=== PATIENT | male | born 1980 | race Caucasian/White ===

== ENCOUNTER 2016-11-02 16:20 | Emergency (ER) | payer SELFPAY ==
[2016-11-02] MEDS ORDERED: IBUPROFEN 800 MG TABLET PO ONE (17:30)
--- NOTE | 2016-11-02 17:31 | ER Document Report ---
HPI - HPI Patient complains to provider of: Left hip injury Onset: Yesterday Onset/Duration: Sudden Quality of pain: Achy Pain Level: 2 Context: States that he was wrestling with his son and fell landing on his left hip. Patient complains of left hip pain with bruising. Patient states pain increases whenever he moves his left extremity posteriorly Associated Symptoms: Other - Hip pain Exacerbated by: Movement Relieved by: Denies Similar symptoms previously: No Recently seen / treated by doctor: No - ROS ROS below otherwise negative: Yes Systems Reviewed and Negative: Yes All other systems reviewed and negative - NEURO Neurology: DENIES: Weakness - CARDIOVASCULAR Cardiovascular: DENIES: Chest pain - MUSCULOSKELETAL Musculoskeletal: REPORTS: Extremity pain. DENIES: Back Pain - DERM Skin Color: Ecchymosis <LIU DILLARD - Last Filed: 11/02/16 18:25> Past Medical History - General Information source: Patient - Social History Smoking Status: Current Every Day Smoker Chew tobacco use (# tins/day): No Frequency of alcohol use: None Drug Abuse: None Occupation: none Lives with: Family Family History: Reviewed & Not Pertinent Patient has suicidal ideation: No Patient has homicidal ideation: No - Medical History Medical History: Negative Renal/ Medical History: Denies: Hx Peritoneal Dialysis Surgical Hx: Negative <LIU DILLARD - Last Filed: 11/02/16 18:25> Vertical Provider Document - CONSTITUTIONAL Agree With Documented VS: Yes Exam Limitations: No Limitations General Appearance: WD/WN, No Apparent Distress - INFECTION CONTROL TRAVEL OUTSIDE OF THE [place] IN LAST 30 DAYS: No - HEENT HEENT: Atraumatic, Normocephalic - NECK Neck: Normal Inspection - RESPIRATORY Respiratory: No Respiratory Distress O2 Sat by Pulse Oximetry: 99 - BACK Back: Normal Inspection Notes: no midline tenderness, step-off or deformity - MUSCULOSKELETAL/EXTREMETIES Musculoskeletal/Extremeties: MAEW, FROM, Tender - Lateral hip tenderness over greater trochanter, faint area of ecchymosis, no dislocation, tenderness increases with extension of left hip, No Edema, Eccymosis - NEURO Level of Consciousness: Awake, Alert, Appropriate Motor/Sensory: No Motor Deficit - DERM Integumentary: Warm, Dry <LIU DILLARD - Last Filed: 11/02/16 18:25> Course - Re-evaluation Re-evalutation: 11/02/16 18:19 Reviewed the results of patient's x-ray report with patient. Offered patient crutches, patient declined. - Vital Signs Vital signs: Temp Pulse Resp BP Pulse Ox 98.1 F 75 18 105/66 99 11/02/16 16:39 11/02/16 16:39 11/02/16 16:39 11/02/16 16:39 11/02/16 16:39 - Diagnostic Test Radiology reviewed: Reports reviewed <LIU DILLARD - Last Filed: 11/02/16 18:25> - Vital Signs Vital signs: Temp Pulse Resp BP Pulse Ox 97.8 F 65 16 116/75 100 11/02/16 18:32 11/02/16 18:32 11/02/16 18:32 11/02/16 18:32 11/02/16 18:32 <JOHNATHAN PEREZ - Last Filed: 11/03/16 14:42> Discharge <LIU DILLARD - Last Filed: 11/02/16 18:25> <JOHNATHAN PEREZ - Last Filed: 11/03/16 14:42> - Discharge Clinical Impression: Contusion, hip Qualifiers: Encounter type: initial encounter Laterality: left Qualified Code(s): S70.02XA - Contusion of left hip, initial encounter Sprain of left hip Qualifiers: Encounter type: initial encounter Qualified Code(s): S73.102A - Unspecified sprain of left hip, initial encounter Condition: Stable Disposition: HOME, SELF-CARE Instructions: Contusion ([facility]), Sprain ([facility]) Additional Instructions: Return immediately for any new or worsening symptoms Followup with your primary care provider, call tomorrow to make a followup appointment Follow-up with orthopedic doctor for any continued pain or problems Prescriptions: Naproxen [Naprosyn 250 Nmg Tablet] 1 tab PO BID #14 tablet Referrals: [facility] ([facility] [Provider Group] - Follow up as needed
--- NOTE | 2016-11-02 18:15 | RADIOLOGY REPORT (SQ) ---
EXAM DESCRIPTION: HIP LEFT AP/LATERAL COMPLETED DATE/TIME: 11/02/2016 5:54 pm REASON FOR STUDY: fall, left hip pain COMPARISON: None. NUMBER OF VIEWS: Two views. TECHNIQUE: AP pelvis and additional frog-leg view of the left hip. LIMITATIONS: None. FINDINGS: MINERALIZATION: Normal. LEFT HIP: No fracture or dislocation. No worrisome bone lesions. RIGHT HIP: No fracture or dislocation. No worrisome bone lesions. PUBIS AND ISCHIUM: No fracture. PELVIS: No fracture. SACRUM: No fracture or dislocation. No worrisome bone lesions. LOWER LUMBAR SPINE: No fracture or dislocation. No worrisome bone lesions. No significant disc disea se. SOFT TISSUES: No findings. OTHER: No other significant finding. IMPRESSION: NO RADIOGRAPHIC EVIDENCE OF ACUTE INJURY. TECHNICAL DOCUMENTATION: JOB ID: [id number] [employer]- All Rights Reserved
[2016-11-02 18:35] VITALS: BP 116/75
== END 2016-11-02 18:36 | disposition home or self-care (01) ==
LOC: ER 16:20
DX: S70.02XA Contusion of left hip, initial encounter (principal); S73.102A Unspecified sprain of left hip, initial encounter; F17.200 Nicotine dependence, unspecified, uncomplicated; W18.30XA Fall on same level, unspecified, initial encounter; Y93.72 Activity, wrestling
CPT/HCPCS: 99283

== ENCOUNTER 2017-05-31 14:23 | Emergency (ER) | payer SELFPAY ==
--- NOTE | 2017-05-31 15:55 | ER Document Report ---
HPI - HPI Pain Level: 4 Notes: Patient is a 36-year-old male who presents to the ED complaining of left scapular pain with no known injury 2-3 days. Patient states that he feels a knot in his back by the shoulder blade that has been bothering him. Patient states that movements and stretches in that area to increase his pain. Patient is able to pinpoint the exact spot that hurts. Patient does not take any medicines daily. He denies any drug allergies. He denies any IV drug use, injections of the back, spine sepsis, cancer, diabetes. Patient states that he is otherwise healthy, but does have chronic low back pain. He has no other concerns or complaints. He has not noticed any muscle deficits to his upper extremities. Denies any headache, fever, head injury, neck pain, changes in vision/speech/mentation/hearing, URI, sore throat, chest pain, palpitations, syncope, cough, shortness of breath, wheeze, dyspnea, abdominal pain, nausea/ vomiting/diarrhea, urinary retention, dysuria, hematuria, loss of control of bowel or bladder, numbness/tingling, saddle anesthesia, muscle paralysis/ weakness, or rash. - ROS Notes: REVIEW OF SYSTEMS: CONSTITUTIONAL : Denies fever, chills, or sweats. Denies recent illness. EENT: Denies eye, ear, throat, or mouth pain or symptoms. Denies nasal or sinus congestion or discharge. Denies throat, tongue, or mouth swelling or difficulty swallowing. CARDIOVASCULAR: Denies chest pain. Denies palpitations or racing or irregular heart beat. Denies ankle edema. RESPIRATORY: Denies cough, cold, or chest congestion. Denies shortness of breath, difficulty breathing, or wheezing. GASTROINTESTINAL: Denies abdominal pain or distention. Denies nausea, vomiting , or diarrhea. Denies blood in vomitus, stools, or per rectum. Denies black, tarry stools. Denies constipation. GENITOURINARY: Denies difficulty urinating, painful urination, burning, frequency, blood in urine, or discharge. MUSCULOSKELETAL: see hpi SKIN: Denies rash, lesions or sores. NEUROLOGICAL: Denies confusion or altered mental status. Denies passing out or loss of consciousness. Denies dizziness or lightheadedness. Denies headache. Denies weakness or paralysis or loss of use of either side. Denies problems with gait or speech. Denies sensory loss, numbness, or tingling. Denies seizures. ALL OTHER SYSTEMS REVIEWED AND NEGATIVE. Dictation was performed using [employer] voice recognition software Past Medical History - Social History Smoking Status: Unknown if Ever Smoked Family History: Reviewed & Not Pertinent Renal/ Medical History: Denies: Hx Peritoneal Dialysis Vertical Provider Document - CONSTITUTIONAL Agree With Documented VS: Yes Notes: PHYSICAL EXAMINATION: GENERAL: Well-appearing, well-nourished and in no acute distress. LUNGS: Breath sounds clear to auscultation bilaterally and equal. No wheezes rales or rhonchi. HEART: Regular rate and rhythm without murmurs, rubs, gallops. ABDOMEN: Soft, nontender, nondistended abdomen. No guarding, no rebound. No masses appreciated. Normal bowel sounds present. No CVA tenderness bilaterally. No pulsatile mass Musculoskeletal: Ext's b/l: FROM to passive/active. Strength 5+/5. No deficits noted. No bony tenderness of extremities. Back: FROM to passive/active. Strength 5+/5. No vertebral point tenderness, stepoffs, or deformities. No other bony tenderness, erythema, swelling, or ecchymosis. SLR negative b/l. + trigger point and muscle spasm to the left superior scapular area. Extremities: No cyanosis, clubbing, or edema b/l. Peripheral pulses 2+. Capillary refill less than 2 seconds. NEUROLOGICAL: Normal speech, normal gait. Normal sensory, motor exams. Reflexes 2+ b/l. PSYCH: Normal mood, normal affect. SKIN: Warm, Dry, normal turgor, no rashes or lesions noted. - INFECTION CONTROL TRAVEL OUTSIDE OF THE [place] IN LAST 30 DAYS: No Course - Re-evaluation Re-evalutation: 05/31/17 15:58 Patient is an afebrile, well-hydrated, 36-year-old male who presents to the ED with left with left scapular pain and muscle spasm based on H&P today. Vitals are stable. PE is otherwise unremarkable for any focal neurological deficits. No labs or imaging warranted at this time based on H&P. Patient had reproducible pain in the trigger point was noted. Low suspicion for any meningitis, fracture, expanding/ruptured AAA, cauda equina syndrome, epidural mass lesion/abscess, herniated disc causing severe spinal stenosis, or other systemic infection at this time. Patient is aware that his condition can change from initial presentation and that he needs monitor symptoms closely for any acute changes. I will send him home with a muscle relaxer, baclofen, that he may use as needed. Recommend conservative measures for symptoms otherwise. Recheck with your PCM in 3-5 days. Consider consult with orthopedics/physical therapy/chiropractic's. Return to the ED with any worsening/concerning symptoms otherwise as reviewed discharge. Patient is in agreement. Discharge - Discharge Clinical Impression: Muscle spasm Condition: Stable Disposition: HOME, SELF-CARE Instructions: Ice Packs ([facility]), Muscle Relaxers ([facility]), Exercise Program for the Shoulder ([facility]), Warm Packs ([facility]) Additional Instructions: Rest, Ice, Compression, Elevation Use crutches/splint/sling as directed Tylenol/ibuprofen as needed Light stretches daily Strength exercises as able Moist heat and massage may help F/u with your PCP in 3-5 days for a recheck Consider consult(s) with Orthopedics/physical therapy for ongoing/worsening symptoms Return to the ED with any worsening symptoms and/or development of fever, headache, chest pain, palpitations, syncope, shortness of breath, trouble breathing, abdominal pain, n/v/d, muscle weakness/paralysis, numbness/tingling, swelling, redness, or other worsening symptoms that are concerning to you. Prescriptions: Baclofen [Baclofen 10 mg Tablet] 5 - 10 mg PO BID PRN #10 tablet PRN Reason: Referrals: [facility] ([facility]) [Provider Group] - Follow up as needed
[2017-05-31 16:35] VITALS: BP 114/75
== END 2017-05-31 16:35 | disposition home or self-care (01) ==
LOC: ER 14:23
DX: M62.838 Other muscle spasm (principal); M25.512 Pain in left shoulder; M54.5 Low back pain; G89.29 Other chronic pain
CPT/HCPCS: 99283

== ENCOUNTER → 2017-07-15 | Outpatient (CLI) | payer OTHER ==
--- NOTE | 2017-07-15 13:42 | RADIOLOGY REPORT (SQ) ---
EXAM DESCRIPTION: CERV SP 4 OR 5 VIEWS COMPLETED DATE/TIME: 07/15/2017 10:28 am REASON FOR STUDY: CERVICAL RADICULOPATHY (M54.12) M54.12 RADICULOPATHY, CERVICAL REGION COMPARISON: None. NUMBER OF VIEWS: Five views. TECHNIQUE: AP, lateral, obliques and odontoid radiographic images acquired of the cervical spine. LIMITATIONS: None. FINDINGS: MINERALIZATION: Normal. ALIGNMENT: Anatomic. VERTEBRAE: Vertebral bodies of normal height. DISCS: No significant osteophytes or sclerosis. Disc height maintained. FORAMINA: No osteophytes or foraminal narrowing. LATERAL AND POSTERIOR ELEMENTS: Facets, lateral masses and spinous processes without significant find ings. HARDWARE: None in the spine. SOFT TISSUES: No masses or calcifications. Lung apices clear. OTHER: No other significant finding. IMPRESSION: NO SIGNIFICANT RADIOGRAPHIC FINDING IN THE CERVICAL SPINE. TECHNICAL DOCUMENTATION: JOB ID: [id number] [employer]- All Rights Reserved Reading location - IP/workstation name: [email or web address]
== END ==
LOC: RAD 09:54
DX: M54.12 Radiculopathy, cervical region (principal)
CPT/HCPCS: 72050

== ENCOUNTER → 2017-07-18 | Outpatient (CLI) | payer OTHER ==
[2017-07-18 09:19] LABS: ABSOLUTE BASOPHILS # (AUTO) 0.1 10^3/uL (0.0-0.2); ABSOLUTE EOSINOPHILS # (AUTO) 0.3 10^3/uL (0.0-0.6); ABSOLUTE LYMPHOCYTES (AUTO) 1.9 10^3/uL (0.5-4.7); ABSOLUTE MONOCYTES (AUTO) 0.7 10^3/uL (0.1-1.4); ABSOLUTE NEUT (AUTO) 4.1 10^3/uL (1.7-8.2); BASOPHILS % (AUTO) 0.8 % (0-2); EOSINOPHILS % (AUTO) 3.6 % (0-6); HEMATOCRIT 44.1 % (37.9-51.0); HEMOGLOBIN 15.5 g/dL (13.5-17.0); LYMPHOCYTES % (AUTO) 27.2 % (13-45); MEAN CORPUSCULAR HEMOGLOBIN 30.5 pg (27.0-33.4); MEAN CORPUSCULAR HGB CONC 35.2 g/dL (32.0-36.0); MEAN CORPUSCULAR VOLUME 87 fl (80-97); MONOCYTES % (AUTO) 10.3 % (3-13); PLATELET COUNT 240 10^3/uL (150-450); RED BLOOD COUNT 5.08 10^6/uL (4.35-5.55); RED CELL DISTRIBUTION WIDTH 13.1 % (11.5-14.0); SEGMENTED NEUTROPHILS % (AUTO) 58.1 % (42-78); TOTAL CELLS COUNTED % (AUTO) 100 %
[2017-07-18 09:36] LABS: ALANINE AMINOTRANSFERASE 34 U/L (21-72); ALBUMIN 3.9 g/dL (3.5-5.0); ALKALINE PHOSPHATASE 47 U/L (38-126); ANION GAP 9 (5-19); ASPARTATE AMINO TRANSFERASE 21 U/L (17-59); BILIRUBIN,DIRECT 0.3 mg/dL (0.0-0.4); BILIRUBIN,TOTAL 0.6 mg/dL (0.2-1.3); BLOOD UREA NITROGEN 10 mg/dL (7-20); CALCIUM 9.6 mg/dL (8.4-10.2); CARBON DIOXIDE 27 mmol/L (22-30); CHLORIDE 105 mmol/L (98-107); CHOLESTEROL 179.58 mg/dL (0-200); GLUCOSE 94 mg/dL (75-110); POTASSIUM 4.5 mmol/L (3.6-5.0); SODIUM 140.8 mmol/L (137-145); TOTAL PROTEIN 6.1 g/dL (6.3-8.2); TRIGLYCERIDES 122 mg/dL (<150)
[2017-07-18 09:47] LABS: DIRECT LDL 139 mg/dL (<100)
== END ==
LOC: CCC 08:45
DX: Z13.9 Encounter for screening, unspecified (principal)
CPT/HCPCS: 36415; 80053; 80061; 83036; 84443; 85025